=== PATIENT | female | born 1960 | race Caucasian/White ===

== ENCOUNTER 2019-12-02 00:24 | Outpatient (CLI) | payer BC, SELFPAY ==
--- NOTE | 2019-12-02 16:31 | DI.MAMMO_ITS ---
EXAM: MG MAMMO SCREENING CLINICAL HISTORY: SCREENING, [facility],Z00.00 TECHNIQUE: Bilateral full field digital CC and MLO mammographic images were obtained with 3D tomosyn thesis and utilizing computer aided detection (CAD). COMPARISON: Available for comparison. FINDINGS: Masses/Architectural Distortion: None seen. Microcalcifications: No suspicious pleomorphic-type are seen. Skin Thickening/Nipple Retraction: None. IMPRESSION: 1. No significant interval change with no specific features of malignancy noted. 2. Unless there is more urgent need, screening mammography is recommended, as per [employer] guidelines. BI-RADS Category 1 - Negative Breast Density - Category B - Scattered areas of fibroglandular density A negative radiographic report should not delay biopsy if a dominant or clinically suspicious mass is present. Up to ten percent of cancers are not identified on mammography. A negative report may reinforce clinical impression. Adenosis and dense breasts may obscure an underlying neoplasm. False positive reports average 6 to 10%. Patient will receive a letter notifying them of these results.
== END 2019-12-02 00:44 ==
PROVIDERS: PCP Family Medicine; Visit Provider Family Medicine
DX: Z12.31 Encounter for screening mammogram for malignant neoplasm of breast (principal); Z00.00 Encounter for general adult medical examination without abnormal findings; R92.2 Inconclusive mammogram
CPT/HCPCS: 77063; 77067

== ENCOUNTER 2021-03-16 09:42 | Outpatient (REF) | payer BC, SELFPAY ==
[2021-03-16 16:39] LABS: Iron 116 ug/dL (50-170); Total Iron Binding Capacity 344 ug/dL (250-450)
[2021-03-16 16:54] LABS: ALT 40 U/L (14-59); AST 19 U/L (15-37); Albumin 4.1 g/dL (3.4-5.0); Alkaline Phosphatase 81 U/L (46-116); Bilirubin, Total 0.4 mg/dL (0.2-1.0); Ferritin 383 ng/mL (8-252); Total Protein 7.1 g/dL (6.4-8.2)
[2021-03-16 17:07] LABS: Bilirubin, Direct 0.1 mg/dL (0.0-0.2)
[2021-03-19 09:46] LABS: Hepatitis C Ab w Rflx HCV PCR Negative (Negative)
[2021-03-19 10:23] LABS: Hepatitis B Surface Ag Negative (Negative)
[2021-03-19 10:36] LABS: HBs Antibody, Quant 4.3 mIU/mL (See Note); Hepatitis B Surface Ab Negative (See Note)
[2021-03-19 16:55] LABS: Hep A Total Ab w Rflx IgM Negative (Negative)
== END 2021-03-16 09:43 | disposition home or self-care (01) ==
LOC: NCHCN 09:42
PROVIDERS: PCP Family Medicine; Visit Provider Family Medicine
DX: N39.0 Urinary tract infection, site not specified (principal); R79.89 Other specified abnormal findings of blood chemistry; Z11.59 Encounter for screening for other viral diseases
CPT/HCPCS: 80076; 86706; 86709; 86803; 87077; 87340; 82728; 83540; 83550; 87086; 87186

== ENCOUNTER → 2022-01-09 02:05 | Outpatient (CLI) | payer BC, SELFPAY ==
--- NOTE | 2022-01-09 12:00 | DI.MAMMO_ITS ---
Exam(s) MAMMO SCREENING EXAM: MAMMO SCREENING CLINICAL HISTORY: SCREENING, Z12.31. TECHNIQUE: Bilateral full field digital CC and MLO mammographic images were obtained with 3D tomosyn thesis and utilizing computer aided detection (CAD). COMPARISON: Prior mammograms were reviewed, the most recent being November 2019. FINDINGS: There has been no significant change in appearance and distribution of the fibroglandular tissue. There are no new spiculated masses nor malignant appearing microcalcification groups. Small benign-appearing microcalcification group in the right breast again noted. There is no significant architectural distortion nor skin thickening-retraction. IMPRESSION: No radiographic evidence of malignancy. BI-RADS Category 1 - Negative Breast Density - Category B - Scattered areas of fibroglandular density Breast density Category C or D implies that the patient has dense breast tissue. Dense breast tissue can make it harder to find cancer on a mammogram. Dense breast tissue is also associated with an incr eased risk of breast cancer. This information about the result of the mammogram report was provided to the patient to raise their awareness. Use this report when you speak with the patient about their risks for breast cancer, which includes their family history. At that time, you may recommend additional screening tests (Ultrasoun d or MRI) as these tests may add significant information. A negative radiographic report should not delay biopsy if a dominant or clinically suspicious mass is present. Up to ten percent of cancers are not identified on mammography. A negative report may reinforce clinical impression. Adenosis and dense breasts may obscure an underlying neoplasm. False positive reports average 6 to 10%. Patient will receive a letter notifying them of these results.
== END ==
PROVIDERS: PCP Family Medicine; Visit Provider Family Medicine
DX: Z12.31 Encounter for screening mammogram for malignant neoplasm of breast (principal)
CPT/HCPCS: 77063; 77067

== ENCOUNTER 2022-08-27 02:54 | Outpatient (CLI) | payer BC, SELFPAY ==
[2022-08-27] MEDS: Inhaler, Assist Device 1 EACH MC (14:20)
[2022-08-27] MEDS: Albuterol HFA 18 GM 200 PUFF INH IH (14:20)
--- NOTE | 2022-08-29 16:01 | W.PFT ---
Date of service: 08/27/22 Time of Service: 12:59 Pulmonary Function Test Result Indications: Asthma Interpretation Spirometry: There is no airflow limitation. There is no bronchodilator response. Lung Volumes: Normal lung volumes Diffusion Capacity: Normal diffusion Airway Pressure: Normal airways resistance Impression Normal pulmonary function testing Clinical Correlation therefore is recommended.
== END 2022-08-27 02:55 | disposition home or self-care (01) ==
LOC: RT 02:54
PROVIDERS: PCP Family Medicine; Visit Provider Physician Assistant Surgical
DX: J45.909 Unspecified asthma, uncomplicated (principal)
CPT/HCPCS: 94060; 94726; 94729

== ENCOUNTER 2022-12-02 10:27 | Outpatient (REF) | payer BC, SELFPAY ==
--- NOTE | 2022-12-02 08:35 | PAPFT_PTH ---
PATIENT: Yaz Chandler LOC: NCN #:[id number] AGE/SX: 62/F ROOM: RE12/02/[address]: Brittanie Booth : 1960 BED: DIS: 12/02/2022 SPEC #: [id number] RECD: 12/02/22 18:18 STATUS: BONNIE REQ #: [id number] WENDY: 12/02/22 08:[address]: Brittanie Booth DEPT: [facility] Cytology RECD BY: Kiara Bonilla Tissues: 1 - CX/ENDOCX FOR PAP SMEARS Procedures: PAP THIN PREP/UVM Screening HPV DNA PROBE Comments: [id number]
== END 2022-12-02 10:28 | disposition home or self-care (01) ==
LOC: NCHCN 10:27
PROVIDERS: PCP Family Medicine; Visit Provider Family Medicine
DX: Z01.419 Encounter for gynecological examination (general) (routine) without abnormal findings (principal); Z11.4 Encounter for screening for human immunodeficiency virus [HIV]
CPT/HCPCS: 88142; 87624

== ENCOUNTER 2022-12-05 12:11 | Day surgery (SDC) | payer BC, SELFPAY ==
[2022-12-05 12:15] VITALS: BP 179/95; PULSE 75; RESP 16; TEMP 36.3; O2SAT 96
[2022-12-05] MEDS: Lactated Ringers 1,000 ML 80 ML IV (12:42)
--- NOTE | 2022-12-05 12:48 | PDOC.DSDIS_ITS ---
Date of service: 12/05/22 Time of Service: 12:48 Discharge Plan Disposition Patient Disposition: Home Condition: Good Discharge Details Reason For Visit: colon scope Attending Provider: Lolita Fernandez Primary Care Provider: Brittanie Booth Home Meds and New Rx's Prescriptions: Continued fluticasone propion-salmeterol [Advair Diskus] 500-50 mcg/dose blister with device 2 inh inhalation BID albuterol sulfate 90 mcg/actuation HFA aerosol inhaler 2 puff inhalation Q4H PRN Glucosamine Chondroitin 550-30-1 mg capsule 1 cap PO BID Rx Instructions: glucosamine 1500mg and chondroitin 1200 mg vitamin B complex Capsule 1 cap PO DAILY magnesium glycinate 100 mg tablet 200 mg PO QHS Rx Instructions: 240 mg yhcrtkp-opbd-qxmiu-oreg-capryl 100 mg-150 mg- 50 mg-150 mg capsule 1 cap PO DAILY cholecalciferol (vitamin D3) 25 mcg (1,000 unit) capsule 25 mcg PO DAILY bupropion HCl 100 mg tablet 100 mg PO BID ascorbate calcium (vitamin C) 500 mg tablet 1,000 mg PO DAILY albuterol sulfate 2.5 mg /3 mL (0.083 %) solution for nebulization 2.5 mg inhalation Q4H PRN chlorthalidone 50 MG tablet 1 tab PO DAILY montelukast 10 MG tablet 1 tab PO HS Zyrtec 10 MG capsule 1 tab PO DAILY potassium chloride 20 MEQ tablet extended release 20 meq PO DAILY Qty: 14 0RF Patient Comments: 03/18/16 Pt states she no longer takes. PG Discontinued bisacodyl [Dulcolax (bisacodyl)] 5 mg tablet,delayed release (DR/EC) 5 mg PO ONCE Qty: 4 0RF Rx Instructions: Take per colonoscopy instructions provided by ordering providers office polyethylene glycol 3350 17 gram/dose powder 17 g PO ONCE Qty: 238 0RF Rx Instructions: Take per colonoscopy instructions provided by ordering providers office Discharge Instructions Additional Instructions: DSU Colonoscopy Post- Op Instructions Instructions for Everyone who is given Anesthesia: For your safety, please do the following for the next twenty-four (24) hours: *Do Not operate a motor vehicle (car, truck, motorcycle, etc.) *Do Not drink alcoholic beverages or use any recreational drugs for the first 24 hours or while taking pain medications. The medications in your body may have a reaction that can be dangerous. *Do Not make any important decisions or sign any important papers. Findings: X1 small colon polyp Follow up: My office will send a letter in 2 to 3 weeks time with the results of the pathology and when to repeat the colonoscopy, most likely 5 to 7 years. 1. No lifting over 20 pounds or strenuous activity for the first 24 hours after your procedure. After 24 hours there are no restrictions on your activity but you may feel fatigued for a few days. 2. After you arrive home you may have a light meal and return to your normal diet as you can tolerate it without feeling sick to your stomach. 3. You may have a bloated, gaseous feeling in your belly (abdomen) after a colonoscopy. Passing gas and belching will help. Walking or lying down on your left side with your knees flexed may relieve the discomfort. Call the office at [phone] (Office) or [phone] (Hospital) right away if you notice any of the following: a.Vomiting of blood or ?coffee ground stools?. b.Rectal bleeding 1Tbsp, blood clots or continuous bleeding. c.Severe belly (abdominal) pain. d.A hard distended belly (abdomen) and an inability to pass gas. 4. Please don?t expect to have a normal BM (bowel movement) for 2-3 days after your procedure. 5. If there are questions regarding the findings of your procedure, please contact your doctor 6. If you are unable to contact your doctor with a problem, contact the hospital at [phone]. 7. Continue all your regular medications unless directed otherwise. I understand the above instructions and have no questions. Signature of Patient or Adult Escort Name of Responsible Adult Escort Signature of Nurse Date/Time Activity:: see above Diet:: see above Discharge Orders Discharge Orders: Discharge Order (Routine); Ordered 12/05/22 Ordered By: Lolita Fernandez DS: Diagnosis Discharge Diagnosis (1) Allergic rhinitis: (2) GERD (gastroesophageal reflux disease): (3) HTN (hypertension): (4) Hyperlipidemia: (5) IBS (irritable bowel syndrome): (6) Prediabetes: (7) Asthma: Status: Chronic (8) Adenomatous polyps: Status: Acute Asessment and Plan: The patient is seen and examined after their colonoscopy.? The patient has been able to pass gas.? They are not having abdominal pain.? They have been able to tolerate liquids and a snack.? They do not have any nausea or vomiting.? They are not having any chest pain or shortness of breath.??? They are not having any rectal bleeding. Their vital signs have been stable-see nursing notes. We discussed findings during their colonoscopy, and any biopsies that were done/polyps that were removed. The patient will be sent a letter with any biopsy results, and when to repeat the colonoscopy.-see discharge instructions. Patient was given explicit instructions to follow-up regarding colonoscopy-refer to discharge instructions.? We reviewed resumption of medications. Patient verbalized understanding and discharged in stable and satisfactory condition- See nursing notes.
--- NOTE | 2022-12-05 12:50 | W.COLOREPORT ---
Date of service: 12/05/22 Time of Service: 12:50 Colonoscopy Report Date of procedure: 12/05/22 Pre-op diagnosis general: A. polyps Post-op diagnosis procedure note: same Surgeon: Lolita Fernandez Anesthesia Type: General:No Airway Estimated blood loss (mL): 1 Pathology: other Complications: None Disposition: same day Prep: Miralax/Dulcolax Retraction Time: 10 Procedure Description: After informed consent was obtained the patient was taken to the procedure room and placed in a left decubitous position. Monitors were applied and a time out was done. The patients name, date of , procedure, allergies to medications and metal in their body was reviewed. The patient was then sedated. Once sedated and comfortable a rectal exam was done. External exam was normal. Internal exam revealed a normal sphincter tone and no palpable masses. The scope was then introduced and retrofelexed. No internal hemorrhoids were identified. The scope was then advanced to the cecum without difficulty. The TI and appendiceal orifice were identified. The prep was BBPS 3 in all segments for a total of 9. The scope was then slowly retracted over 10 minutes back into the rectum. she had a pedunculated 5 mm polyp at 40 cm. This is removed with a cold biting forcep. All specimen is retrieved and no bleeding is noted. There are no AVMs or diverticula visualized today. Mucosa is pink and healthy with a normal vascular pattern the scope was removed and the patient was woken up and taken back to Same day surgery in stable condition. The patient tolerated the procedure well and there were no immediate complications. Follow up: The patient should follow up in 5-7 years, path pending, unless they develop changes in bowel habits or other new gastrointestinal complaints.
--- NOTE | 2022-12-05 13:25 | BOWEL_PTH ---
PATIENT: Yaz Chandler LOC: [facility] U#:[id number] AGE/SX: 62/F ROOM: RE12/05/[address]: Lolita Fernandez : 1960 BED: DIS: 12/05/2022 SPEC #: [id number] RECD: 12/05/22 18:52 STATUS: BONNIE RE #: [id number] WENDY: 12/05/22 13:[address]: Lolita Fernandez DEPT: Surgical Specimen RECD BY: Kiara Bonilla ENTERED: 12/05/22 18:53 SP TYPE: Bowel OTHR DR: Brittanie Booth Tissues: 1 - BIOPSY BOWEL Procedures: GROSS AND MICRO LEVEL 4 Comments: [id number]
== END 2022-12-05 14:20 | disposition home or self-care (01) ==
PROVIDERS: PCP Family Medicine; Visit Provider Surgery
PROC: 0DJD8ZZ Inspection of Lower Intestinal Tract, Via Natural or Artificial Opening Endoscopic (ICD-10-PCS; CPT 45378; principal; 2022-12-05 12:15)
DX: Z12.11 Encounter for screening for malignant neoplasm of colon (principal); Z86.010 Personal history of colon polyps; K63.5 Polyp of colon
CPT/HCPCS: 45380; 88305

== ENCOUNTER 2022-12-30 13:04 | Outpatient (REF) | payer BC, SELFPAY ==
[2022-12-30 15:19] LABS: Anion Gap 8.5 mmol/L (3-11); BUN 28 mg/dL (7-18); CO2 28.5 mmol/L (21.0-32.0); CREATININE 0.8 mg/dL (0.55-1.02); Calcium 9.5 mg/dL (8.5-10.1); Chloride 104 mmol/L (98-107); Estimated GFR 82.74 (mL/min/1.73m2); Glucose 118 mg/dL (74-106); Potassium 3.7 mmol/L (3.5-5.1); Sodium 141 mmol/L (136-145)
[2022-12-30 16:45] LABS: Hemoglobin A1C 5.9 % (<5.7)
== END 2022-12-30 13:05 | disposition home or self-care (01) ==
LOC: NCHCN 13:04
PROVIDERS: PCP Family Medicine; Visit Provider Family Medicine
DX: I10 Essential (primary) hypertension (principal); R73.03 Prediabetes; R00.2 Palpitations
CPT/HCPCS: 80048; 83036

== ENCOUNTER 2023-01-02 08:20 | Outpatient (RCR) | payer BC, SELFPAY ==
--- NOTE | 2023-01-02 08:24 | HOLTER_ITS ---
APPROVED REPORT Conclusion This is a 48-hour Holter monitor ordered for palpitations Rhythm throughout was sinus with an average heart rate of 78. Minimum was 54, maximum 118 There were no ventricular dysrhythmias There were 10 isolated atrial premature beats There was no atrial fibrillation, no SVT, no high-grade AV block, no pauses greater than 3 seconds Patient symptoms were reported which had no correlation to any dysrhythmia
== END 2023-01-09 23:59 | disposition home or self-care (01) ==
LOC: CARDOPNVT 08:20
PROVIDERS: PCP Family Medicine; Visit Provider Family Medicine
DX: R00.2 Palpitations (principal)
CPT/HCPCS: 93225; 93226

== ENCOUNTER 2023-04-09 11:03 | Outpatient (REF) | payer MEDICAID, SELFPAY ==
[2023-04-09 15:56] LABS: Anion Gap 7.5 mmol/L (3-11); BUN 15 mg/dL (7-18); CO2 31.5 mmol/L (21.0-32.0); CREATININE 0.9 mg/dL (0.55-1.02); Calcium 9.3 mg/dL (8.5-10.1); Chloride 103 mmol/L (98-107); Estimated GFR 71.83 (mL/min/1.73m2); Glucose 121 mg/dL (74-106); Potassium 3.4 mmol/L (3.5-5.1); Sodium 142 mmol/L (136-145)
== END 2023-04-09 11:04 | disposition home or self-care (01) ==
LOC: NCHCN 11:03
PROVIDERS: PCP Family Medicine; Visit Provider Family Medicine
DX: I10 Essential (primary) hypertension (principal)
CPT/HCPCS: 80048

== ENCOUNTER 2023-07-15 18:30 | Outpatient (REF) | payer OTHER, MEDICAID, SELFPAY ==
[2023-07-15 15:20] LABS: Anion Gap 8.1 mmol/L (3-11); BUN 15 mg/dL (7-18); CO2 30.9 mmol/L (21.0-32.0); CREATININE 0.8 mg/dL (0.55-1.02); Calcium 9.3 mg/dL (8.5-10.1); Chloride 101 mmol/L (98-107); Estimated GFR 82.23 (mL/min/1.73m2); Glucose 113 mg/dL (74-106); Potassium 3.6 mmol/L (3.5-5.1); Sodium 140 mmol/L (136-145)
== END 2023-07-15 18:31 | disposition home or self-care (01) ==
LOC: NCHCN 18:30
PROVIDERS: PCP Family Medicine; Referring Provider Family Medicine; Visit Provider Family Medicine
DX: E83.52 Hypercalcemia (principal)
CPT/HCPCS: 80048

== ENCOUNTER 2023-12-12 15:11 | Outpatient (REF) | payer OTHER, MEDICAID, SELFPAY ==
[2023-12-12 17:18] LABS: Anion Gap 8.9 mmol/L (3-11); BUN 16 mg/dL (7-18); CO2 29.1 mmol/L (21.0-32.0); CREATININE 0.8 mg/dL (0.55-1.02); Calcium 9.6 mg/dL (8.5-10.1); Calculated LDL 180 mg/dL (<100); Chloride 104 mmol/L (98-107); Cholesterol 282 mg/dL (<200); Estimated GFR 82.23 (mL/min/1.73m2); Glucose 119 mg/dL (74-106); HDL Cholesterol 86 mg/dL (40-60); Magnesium 1.7 mg/dL (1.8-2.4); Sodium 142 mmol/L (136-145); Triglyceride 81 mg/dL (<150)
[2023-12-12 17:46] LABS: Hemoglobin A1C 5.9 % (<5.7)
== END 2023-12-12 15:12 | disposition home or self-care (01) ==
LOC: NCHCN 15:11
PROVIDERS: PCP Family Medicine; Visit Provider Family Medicine
DX: I10 Essential (primary) hypertension (principal); E78.5 Hyperlipidemia, unspecified; R73.03 Prediabetes; Z51.81 Encounter for therapeutic drug level monitoring
CPT/HCPCS: 80048; 80061; 83036; 83735

== ENCOUNTER → 2023-12-16 00:59 | Outpatient (CLI) | payer OTHER, MEDICAID, SELFPAY ==
--- NOTE | 2023-12-16 | DI.MAMMO_ITS ---
Exam(s) MAMMO SCREENING EXAM: MAMMO SCREENING CLINICAL HISTORY: SCREENING, Z12.31. TECHNIQUE: Bilateral full field digital CC and MLO mammographic images were obtained with 3D tomosyn thesis and utilizing computer aided detection (CAD). COMPARISON: Prior mammograms were reviewed. FINDINGS: There has been no significant change in the appearance and distribution of the fibroglandular tissue. There are no new spiculated masses nor malignant appearing microcalcification groups. Benign-appearing microcalcification group in the right breast is unchanged from prior mammograms. There is no significant architectural distortion nor skin thickening-retraction. IMPRESSION: No radiographic evidence of malignancy. BI-RADS Category 1 - Negative Breast Density - Category B - Scattered areas of fibroglandular density Breast density Category C or D implies that the patient has dense breast tissue. Dense breast tissue can make it harder to find cancer on a mammogram. Dense breast tissue is also associated with an incr eased risk of breast cancer. This information about the result of the mammogram report was provided to the patient to raise their awareness. Use this report when you speak with the patient about their risks for breast cancer, which includes their family history. At that time, you may recommend additional screening tests (Ultrasoun d or MRI) as these tests may add significant information. A negative radiographic report should not delay biopsy if a dominant or clinically suspicious mass is present. Up to ten percent of cancers are not identified on mammography. A negative report may reinforce clinical impression. Adenosis and dense breasts may obscure an underlying neoplasm. False positive reports average 6 to 10%. Patient will receive a letter notifying them of these results.
--- NOTE | 2023-12-16 | DI.US_ITS ---
Exam(s) US PELVIS TRANSVAGINAL EXAM: US PELVIS TRANSVAGINAL CLINICAL HISTORY: PELVIC AND PERINEAL PAIN, R10.2 TECHNIQUE: Transabdominal and transvaginal imaging was performed using standard protocol. COMPARISON: No exams were available for comparison FINDINGS: The bladder is unremarkable. UTERUS: Anteverted. 5.6 x 2.8 x 3.1 cm Endometrium: 4 mm Myometrium: Unremarkable. Cervix: Unremarkable. OVARIES: Not visualized. Obscured by bowel gas. CUL-DE-SAC: Free fluid: None. IMPRESSION: 1. Normal-appearing uterus with endometrial stripe within normal limits. 2. Ovaries were not visualized. DATA REPOSITORY:
== END ==
PROVIDERS: PCP Family Medicine; Visit Provider Family Medicine
DX: R10.2 Pelvic and perineal pain (principal); Z12.31 Encounter for screening mammogram for malignant neoplasm of breast
CPT/HCPCS: 77063; 77067; 76830; 76856

== ENCOUNTER 2024-06-04 13:10 | Outpatient (REF) | payer OTHER, MEDICAID, SELFPAY ==
[2024-06-04 18:33] LABS: HCT 43.5 % (36.0-46.0); HGB 14.8 g/dL (11.2-15.7); MCH 31.4 pg (27.0-33.0); MCV 92 fL (80-95); MPV 10.3 fL (8.0-11.0); Platelet Count 316 10^3/uL (130-400); RBC 4.72 10^6/uL (3.93-5.22); RDW-SD 40.8 fL; WBC 5.53 10^3/uL (4.4-10.8)
[2024-06-04 18:59] LABS: Anion Gap 7.8 mmol/L (3-11); BUN 15 mg/dL (7-18); CO2 31.2 mmol/L (21.0-32.0); CREATININE 0.8 mg/dL (0.55-1.02); Calcium 10.1 mg/dL (8.5-10.1); Chloride 103 mmol/L (98-107); Estimated GFR 82.23 (mL/min/1.73m2); Glucose 124 mg/dL (74-106); Potassium 3.6 mmol/L (3.5-5.1); Sodium 142 mmol/L (136-145)
[2024-06-04 19:08] LABS: Hemoglobin A1C 5.9 % (<5.7)
== END 2024-06-04 13:11 | disposition home or self-care (01) ==
LOC: NCHCN 13:10
PROVIDERS: PCP Family Medicine; Visit Provider Family Medicine
DX: E87.6 Hypokalemia (principal); R73.03 Prediabetes
CPT/HCPCS: 80048; 85027; 83036

== ENCOUNTER 2024-07-16 14:43 | Outpatient (REF) | payer MEDICARE, MEDICAID, SELFPAY ==
[2024-07-16 16:27] LABS: Anion Gap 6.6 mmol/L (3-11); BUN 13 mg/dL (7-18); CO2 31.4 mmol/L (21.0-32.0); CREATININE 0.7 mg/dL (0.55-1.02); Calcium 9.5 mg/dL (8.5-10.1); Chloride 108 mmol/L (98-107); Estimated GFR 95.92 (mL/min/1.73m2); Glucose 112 mg/dL (74-106); Potassium 4.4 mmol/L (3.5-5.1); Sodium 146 mmol/L (136-145)
== END 2024-07-16 14:44 | disposition home or self-care (01) ==
LOC: NCHCN 14:43
PROVIDERS: PCP Family Medicine; Visit Provider Family Medicine
DX: E87.6 Hypokalemia (principal)
CPT/HCPCS: 80048

== ENCOUNTER 2024-08-06 10:10 | Outpatient (REF) | payer MEDICARE, MEDICAID, SELFPAY ==
[2024-08-06 16:19] LABS: COMMENT (LAB VIEW ONLY) 143.16 mg/dL; Microalb ug/mg Crea 4.3 ug/mg Cr
== END 2024-08-06 10:11 | disposition home or self-care (01) ==
LOC: NCHCN 10:10
PROVIDERS: PCP Family Medicine; Visit Provider Family Medicine
DX: I10 Essential (primary) hypertension (principal)
CPT/HCPCS: 82043; 82570

== ENCOUNTER 2024-08-10 01:14 | Outpatient (CLI) | payer MEDICARE, MEDICAID, SELFPAY ==
--- NOTE | 2024-08-10 | DI.CT_ITS ---
Exam(s) CT CHEST WO EXAM: CT CHEST WO CLINICAL HISTORY: ABNL FINDINGS ON DIAGNOSTIC IMAGING, CT CHEST ABNORMAL, R93.89,? resolution. TECHNIQUE: Imaging protocol: Axial computed tomography images were obtained and coronal and sagittal reformatted images were created and reviewed. Lung Computer Aided Detection (CAD) was utilized. COMPARISON: CT ABD PELVIS WITH CONTRAST from 10/23/2013 CR XR CHEST 2VW (D) from 08/02/[address] CHEST/ABD/PELVIS W/CONTRAST from 05/12/2024 FINDINGS: Tracheobronchial tree: Patent where visualized. No bronchiectasis is present. Pulmonary parenchyma: There is been complete resolution of the bilateral pulmonary infiltrates. No n ew infiltrates are seen. There is a 3 mm nodule at the lateral aspect of the right upper lobe (serie s 2, image 49). Mediastinum and Misty: No dominant adenopathy or fluid collection. The esophagus is unremarkable.There is a small hiatal hernia. Thyroid gland: Unremarkable. Pleura: No effusion or pneumothorax. Heart: The heart is not dilated. Mild coronary artery calcification is present. No pericardial effus ion. Aorta: Thoracic aorta non-dilated. Atherosclerotic calcification is present. Upper abdomen: Status post cholecystectomy. Lymph nodes: Within normal limits. Soft tissues: Unremarkable. Bones:Within normal limits for the patient's age. There again seen stable round sclerotic foci in th e right 3rd rib and the T11 vertebra. IMPRESSION: 1. Resolution of the pulmonary opacities. 2. No acute pulmonary process. 3. 3 mm right upper lobe pulmonary nodule. Single solid noncalcified nodules. ???Solid nodules smaller than 6 mm (those 5 mm or smaller) do not require routine follow-up in patients at low risk (grade 1C; strong recommendation, low- or very-low- quality evidence). (Jessiehobob et al., 2017) Solid nodules smaller than 6 mm do not require routine follow-up in all patients with high clinical r isk; however, some nodules smaller than 6 mm with suspicious morphology, upper lobe location, or both may warrant follow-up at 12 months (grade 2A; weak recommendation, high-quality evidence). (Anderson et al., 2017) 4. Sclerotic foci seen in the right 3rd rib in the T11 vertebra. These may represent benign lesion s uch as bone islands. If there is concern for metastatic disease, bone scan should be considered. Unexpected findings RADIATION DOSE DELIVERED: 160.62mGy.cm Total DLP 160.62mGy.cm Total DLP DATA REPOSITORY: All CT scans at this facility are submitted to the National Radiology Data Registry (NRDR) Dose Index Registry (DIR) with the [employer] (ACR). RADIATION OPTIMIZATION: All CT scans at this facility use at least one of these dose optimization te chniques: automated exposure control; mA and/or kV adjustment per patient size (includes targeted exa ms where dose is matched to clinical indication); or iterative reconstruction.
== END 2024-08-10 01:34 ==
PROVIDERS: PCP Family Medicine; Visit Provider Family Medicine
DX: R93.89 Abnormal findings on diagnostic imaging of other specified body structures; R91.1 Solitary pulmonary nodule
CPT/HCPCS: 71250

== ENCOUNTER 2024-09-06 11:42 | Outpatient (REF) | payer MEDICARE, OTHER, MEDICAID, SELFPAY ==
[2024-09-06 16:07] LABS: Anion Gap 8.3 mmol/L (3-11); BUN 23 mg/dL (7-18); CO2 31.7 mmol/L (21.0-32.0); CREATININE 0.9 mg/dL (0.55-1.02); Calcium 9.8 mg/dL (8.5-10.1); Chloride 105 mmol/L (98-107); Estimated GFR 70.95 (mL/min/1.73m2); Glucose 119 mg/dL (74-106); Potassium 4.5 mmol/L (3.5-5.1); Sodium 145 mmol/L (136-145)
== END 2024-09-06 11:43 | disposition home or self-care (01) ==
LOC: NCHCN 11:42
PROVIDERS: PCP Family Medicine; Visit Provider Family Medicine
DX: E87.6 Hypokalemia (principal)
CPT/HCPCS: 80048

== ENCOUNTER 2024-12-29 02:06 | Outpatient (CLI) | payer MEDICARE, OTHER, SELFPAY ==
--- NOTE | 2024-12-29 | DI.DEXA_ITS ---
Exam(s) XR DEXA BONE DENSITY W/WO FELICIANO EXAM: XR DEXA BONE DENSITY W/WO FELICIANO CLINICAL HISTORY: ASYMPTOMATIC MENOPAUSAL STATE Z78.0 TECHNIQUE: [employer] C densitometer analysis of left hip, lumbar spine and right forearm. Lateral survey image of the thoracic and lumbar spine. COMPARISON: No exams were available for comparison FINDINGS: Lateral view of the thoracic and lumbar spine shows no evidence of compression fractures. Bone mineral density measurements of the lumbar spine correspond to a total T- score of 0.0, in the normal range Bone mineral density measurements of the left hip correspond to a total T-score of -1.1. The femoral neck T-score is -1.7, in the osteopenic range.. Theright forearm bone mineral density measurements correspond to a T-score of the distal 3rd of 0.4, in the normal range.. IMPRESSION: Normal bone mineral density of the spine and forearm. Osteopenia of the hip.
== END 2024-12-29 02:26 ==
LOC: DI 02:07
PROVIDERS: PCP Family Medicine; Visit Provider Family Medicine
DX: Z13.820 Encounter for screening for osteoporosis (principal); Z78.0 Asymptomatic menopausal state; M85.89 Other specified disorders of bone density and structure, multiple sites
CPT/HCPCS: 77080

== ENCOUNTER 2025-05-02 08:14 | Day surgery (SDC) | payer MEDICARE, OTHER, SELFPAY ==
[2025-05-02] VITALS (12 sets, daily range): BP systolic 105–157; BP diastolic 51–100; PULSE 75–97; RESP 16–20; TEMP 36.2–36.7; O2SAT 91–99; BMI 25.7
--- NOTE | 2025-05-02 08:17 | W.ANESPRE ---
General Info Date of Service Date Performed: 05/02/25 Height: 5 ft 4.5 in Weight: 68.946 kg Body Mass Index (BMI): 25.7 Surgical Procedure: Operation Date: 05/02/25 09:40 Proposed Procedure Side Surgeon p Micro Laryngoscopy w/Vocal Cord Biopsy Jimmie Mendez MD Meds Allergies and Home Medications Allergies Allergy/AdvReac Type Severity Reaction Status Date / Time morphine AdvReac Intermediate Palpitation Verified 05/02/25 08:35 s Home Medication ?Medication ?Instructions ?Recorded montelukast 10 mg tablet 1 tab PO HS 10/23/13 bupropion HCl 100 mg tablet 100 mg PO BID 01/12/21 albuterol sulfate 2.5 mg/3 mL 2.5 mg inhalation Q4H PRN 08/13/22 (0.083 %) solution for nebulization albuterol sulfate 90 mcg/actuation 2 puff inhalation Q4H PRN 08/22/22 aerosol inhaler fluticasone 500 mcg-salmeterol 50 2 inh inhalation BID 08/22/22 mcg/dose blistr powdr for inhalation (Advair Diskus) cholecalciferol (vitamin D3) 25 25 mcg PO DAILY 11/28/22 mcg (1,000 unit) capsule glucosamine sulf dipot 1 cap PO BID 11/28/22 chlr,msm,chond 550 mg-C 30 mg-fidel 1 mg capsule (Glucosamine Chondroitin) magnesium glycinate 100 mg (as 200 mg PO QHS 11/28/22 glycinate) tablet turmeric 100 mg-ivan 150 1 cap PO DAILY 11/28/22 mg-olive 50 mg-oreg 150 mg-capryl capsule vitamin B complex 1 cap PO DAILY 11/28/22 cyclosporine 0.05 % eye drops in a 1 drp ophthalmic (eye) Q12H 12/30/24 dropperette (Restasis) omeprazole magnesium 20 mg 20 mg PO HS 12/30/24 tablet,delayed release promethazine 25 mg tablet 25 mg PO Q6H PRN 12/30/24 valsartan 160 mg tablet 160 mg PO DAILY 12/30/24 cetirizine 10 mg tablet (All Day 10 mg PO DAILY PRN 03/08/25 Allergy (cetirizine)) vit A 150 mcg-D3 25 jmo-Y- 1 cap PO DAILY 03/08/25 550 ld-leq-hcl-fish-herb 371 capsule (Eyepromise Ez Tears) Current Visit Medications: Current Medications Generic Name Dose Route Start Last Admin Trade Name Chris PRN Reason Stop Dose Admin Ringer's Solution 1,000 mls @ 50 mls/hr 05/02/25 06:00 IV 05/29/25 23:59 INFUSION EDITH Sodium Chloride 0 ml 05/02/25 06:00 Normal Saline Flush 10 Ml Syr IV 05/29/25 23:59 PRN PRN Sodium Chloride 0 ml 05/02/25 06:00 Normal Saline 10 Ml Vial IJ 05/29/25 23:59 DIRECTED PRN Sterile Water 0 ml 05/02/25 06:00 Water,Injection,Sterile 10 Ml Vial IJ 05/29/25 23:59 DIRECTED PRN PFSH Active Problems Active Problems: Problem Status Onset Code Excessive cerumen in right ear canal Acute H61.21 Leukoplakia of vocal cords Acute J38.3 Chronic laryngitis Acute J37.0 Chronic depression Acute F32.A Benign colon polyp Acute ~12/05/22 K63.5 Adenomatous polyps Acute D36.9 Asthma Chronic J45.909 Cough Acute R05.9 Sinusitis Acute J32.9 Toe pain, right Acute M79.674 Medical History Medical History Palpitations Per pt. states they went away never amounted to anything that she can recall Insomnia Chronic diarrhea Gastro-esophageal reflux disease without esophagitis History of adenomatous polyp Overweight Solitary lung nodule Allergic rhinitis Depression Migraine headache IBS (irritable bowel syndrome) Hyperlipidemia History of adenomatous polyp of colon Prediabetes Chronic cough Lateral epicondylitis of right elbow Hypokalemia Toe pain HTN (hypertension) GERD (gastroesophageal reflux disease) Surgical History Surgical History History of arthroscopy of shoulder L shoulder distal clavicle resection H/O nasal polypectomy Tubal Ligation, Viktoriya Fundoplication Colonoscopy (11/2022) 03/20/2016 Cholecystectomy Tobacco Smoking/Tobacco Use Status: Former Tobacco Use Alcohol Alcohol Intake: current Alcohol intake frequency: a few times a week Substance Use Substance use: Never Substance use type: does not use Vital Signs and Lab Results Vital Signs Most Recent Vital Signs in EMR: Temp Pulse Resp BP Pulse Ox 36.7 C 76 20 157/100 H 99 05/02/25 08:34 05/02/25 08:34 05/02/25 08:34 05/02/25 08:34 05/02/25 08:34 Anesthesia Assessment and Plan Anesthesia History Personal History: PONV Family History: No Family History of Anesthesia Complications Exercise Tolerance Exercise Tolerance: Metabolic Equivalents>4 Cardiac & Pulmonary Exam Cardiac Exam: Normal S1/S2 Heart Sounds Pulmonary Exam: Clear Bilateral Breath Sounds Implantable Cardiac Device Does patient have a Pacemaker or an ICD?: No Airway Exam Known Difficult Airway: No Mallampati Class: 3 Mouth Opening: Narrow (< 3cm) Thyromental Distance: Less than 3 cm Neck Range of Motion: Full ROM Neck Circumference: Normal Teeth Condition: Normal Dentition ASA Classification ASA Score: ASA 2 Emergency Case?: No NPO Status NPO Status: NPO Clears >2 hours, Solids >8 hours Anesthesia Plan Resuscitation Status: Full Code Anesthesia Technique: General Anesthesia Airway Planned: Endotracheal Tube Monitors Used: Standard Monitors Preoperative Comments:: 64 yo for microlaryngoscope. Sig PMHx: HTN, palpitations, asthma, GERD (s/p viktoriya, but feels that it is loosening), PreDM, depression Former smoker, occ EtOH. Previous Anes: PONV hx. - colo, prop, natural airway, no issues.
[2025-05-02] MEDS: Lactated Ringers 1,000 ML 50 ML IV (08:55)
--- NOTE | 2025-05-02 10:14 | W.PM.DSUDISC ---
Date of service: 05/02/25 Discharge Plan Disposition Patient Disposition: Home Condition: Good Discharge Details Reason For Visit: Microlaryngoscopy with biopsy Attending Provider: Jimmie Mendez Primary Care Provider: Brittanie Booth Home Meds and New Rx's Prescriptions: No Action fluticasone propion-salmeterol [Advair Diskus] 500-50 mcg/dose blister with device 2 inh inhalation BID albuterol sulfate 90 mcg/actuation HFA aerosol inhaler 2 puff inhalation Q4H PRN cetirizine [All Day Allergy (cetirizine)] 10 mg tablet 10 mg PO DAILY PRN Eyepromise Ez Tears 150 mcg-25 mcg- 550 mg capsule 1 cap PO DAILY Glucosamine Chondroitin 550-30-1 mg capsule 1 cap PO BID Rx Instructions: glucosamine 1500mg and chondroitin 1200 mg vitamin B complex Capsule 1 cap PO DAILY magnesium glycinate 100 mg tablet 200 mg PO QHS Rx Instructions: 240 mg dvwijeve-hnvh-skfjj-oreg-capry 100 mg-150 mg- 50 mg-150 mg capsule 1 cap PO DAILY cholecalciferol (vitamin D3) 25 mcg (1,000 unit) capsule 25 mcg PO DAILY bupropion HCl 100 mg tablet 100 mg PO BID albuterol sulfate 2.5 mg /3 mL (0.083 %) solution for nebulization 2.5 mg inhalation Q4H PRN promethazine 25 mg tablet 25 mg PO Q6H PRN omeprazole magnesium 20 mg tablet,delayed release (DR/EC) 20 mg PO HS valsartan 160 mg tablet 160 mg PO DAILY cyclosporine [Restasis] 0.05 % dropperette 1 drp ophthalmic (eye) Q12H montelukast 10 MG tablet 1 tab PO HS Discharge Instructions Additional Instructions: Avoid shouting, whispering, or excess talking for the next 2 weeks Avoid clearing your throat Ibuprofen or Tylenol for discomfort. Expect a small amount of blood in your mucus. This should clear in the next couple of days Call the office if you do not hear from me within 1 week with regard to pathology My cell phone number is [phone]. Please call with any questions or concerns. If you are unable to reach me and you feel it is an emergency, please call 911 or proceed to the emergency room Stand Alone Forms: Anesthesia Discharge Inst[facility] Galaviz (DSU), Portal Information Referrals: Jimmie Mendez MD [ [facility] STAFF PHYSICIAN, ENT Surgical] Referral Note: 1 month, please call for appointment if not already made Diet:: As Tolerated Discharge Orders Discharge Orders: Discharge Order (Routine); Ordered 05/02/25 Ordered By: Jimmie Mendez
--- NOTE | 2025-05-02 10:18 | W.PM.OP ---
Operative Note Operative Note PRE-OP DIAGNOSIS: Hoarseness PROCEDURE: Microlaryngoscopy with biopsy, bilateral vocal cords SURGEON: Jimmie Mendez ANESTHESIA TYPE: General LMA/ETT Refer to Anesthesia Record ESTIMATED BLOOD LOSS: 0 PATHOLOGY: other (Bilat Vocal Cord Biopsy) COMPLICATIONS: None Patient was transported to: PACU Patient's condition: stable Indications: The patient has hoarseness with vocal cord irregularity that I have been unable to resolve medically. Options were explained to the patient regarding further management. She elected to undergo the above procedure. Consent was signed and signed prior to the procedure. H&P was reviewed. There have been no changes. All questions were answered prior to the procedure. Findings: Bilateral cords diffusely but mildly erythematous and edematous with slight patches of leukoplakia. No discrete masses or lesions otherwise. This erythema and edema does not extend beyond the vocal cords Procedure Description: After obtaining an adequate level of general endotracheal anesthesia the patient was positioned in a supine position and prepped and draped in appropriate fashion. A moist 4 x 4 was placed along the upper dentition to protect the teeth. A Holinger laryngoscope was then carefully introduced into the oral cavity and advanced into the larynx to afford an excellent view of the vocal cords. The operating microscope with a 400 mm lens was then moved into position. Examination revealed the above. Small upgoing cup forceps were then used to perform small mucosal biopsies of both vocal cords. These were sent separately. Bleeding was minimal and self-limited. Following this, the Holinger laryngoscope was taken out of suspension, and carefully removed. Dentition was inspected revealing no damage to the teeth or the oral or pharyngeal mucosa. The patient was then awakened and extubated by anesthesia and taken the recovery room in stable condition. I was present throughout the entire case. Date of Procedure: 05/02/25
--- NOTE | 2025-05-02 10:50 | VOCCOR_PTH ---
PATIENT: Yaz Chandler LOC: [facility] U#:[id number] AGE/SX: 64/F ROOM: RE05/02/[address]: Jimmie Mendez MD : [id number] BED: DIS: 05/02/2025 SPEC #: [id number] RECD: 05/02/25 12:53 STATUS: BONNIE REQ #: [id number] WENDY: 05/02/25 10:[address]: Jimmie Mendez DEPT: Surgical Specimen RECD BY: Kiara Bonilla ENTERED: 05/02/25 12:55 SP TYPE: VOCCOR OTHR DR: Brittanie Booth Tissues: 1 - VOCAL CORD 2 - VOCAL CORD Procedures: GROSS AND MICRO LEVEL 4 Comments: [id number]
--- NOTE | 2025-05-02 11:12 | W.ANESPOSTOP ---
Postoperative Evaluation Date, Time and Location Date Performed: 05/02/25 Time Performed: 11:12 Patient Location: PACU Vital Signs Most Recent Imported Vital Signs: Most Recent Vital Signs Temp Pulse Resp BP Pulse Ox 36.5 C 84 20 138/86 93 05/02/25 11:11 05/02/25 11:10 05/02/25 08:34 05/02/25 11:07 05/02/25 11:10 Pain Score Most Recent Pain Score: Most Recent Pain Score Pain Level 0 05/02/25 11:11 Assessment Mental Status: Awake (Alert & Oriented to Patient Baseline) Airway and Respiratory Function: Patent airway with normal (patient baseline) respiratory exam Cardiovascular Function: Hemodynamically Stable Hydration Status: Adequately Hydrated Nausea & Vomiting: No Nausea or Vomiting Pain: Pain is tolerable per patient Peripheral Nerve Block: Patient did not receive a nerve block
== END 2025-05-02 12:14 | disposition home or self-care (01) ==
PROVIDERS: PCP Family Medicine; Visit Provider Otolaryngology
PROC: 0CJS8ZZ Inspection of Larynx, Via Natural or Artificial Opening Endoscopic (ICD-10-PCS; CPT 31575; principal; 2025-05-02 09:30)
DX: J38.3 Other diseases of vocal cords (principal); R05.9 Cough, unspecified; J37.0 Chronic laryngitis; J38.7 Other diseases of larynx
CPT/HCPCS: 31536; 88305; J0131; J1100; J2405; J2704; J3010; J3475